=== PATIENT | male | born 1955 | race Asian ===

== ENCOUNTER 2020-04-10 08:48 | Day surgery (SDC) | payer BC ==
[~2020-04-10] VITALS: Ht 170.2 cm; Wt 77.1 kg
[2020-04-10] VITALS (10 sets, daily range): BP systolic 96–109; BP diastolic 60–71
--- NOTE | 2020-04-10 07:06 | Pre-Procedure Note/Attestation ---
Pre-Procedure Note/Attestation Complete Prior to Procedure Planned Procedure: left Procedure Narrative: left carpal tunnel release and middle trigger finger release Indications for Procedure Pre-Operative Diagnosis: left carpal tunnel syndrome and middle trigger finger Attestation I attest that I discussed the nature of the procedure; its benefits; risks and complications; and alternatives (and the risks and benefits of such alternatives ), prior to the procedure, with the patient (or the patient's legal customer retention representative). I attest that, if there was a reasonable possibility of needing a blood transfusion, the patient (or the patient's legal customer retention representative) was given the [facility] standardized written summary, pursuant to the [place] Blood Safety Act ([place] Health and Safety Code # 1645, as amended). I attest that I re-evaluated the patient just prior to the surgery and that there has been no change in the patient's H&P, except as documented below: NONE Amilcar Mcdowell MD Apr 10, 2020 07:06
[~2020-04-10 08:48] MED LIST: ANDROGEL75 G1 TD; ANDROGEL75 G2 TD; CIPRO500 MG PO; FLOMAX0.4 MG ORAL; LIPITOR20 MG ORAL; LOSARTAN POTASS25 MG ORAL; MOTRIN100 MG PO; NORVASC5 MG ORAL; OMEPRAZOLE40 M1 ORAL; PROTONIX40 MG ORAL; ceFAZolin sod 1gm in NS 55ml IVPB ONE; celeBREX 200mg Cap **SURGERY PATIENTS ONLY ORAL ONE; oxyCONTIN 10mg tab ORAL ONE
[2020-04-10] MEDS ORDERED: LR 1000ml 1,000 ML IVLG SCH (09:21)
[2020-04-10] MEDS ORDERED: fentaNYL 100 mcg/2 mL IV PRN (09:23)
[2020-04-10] MEDS ORDERED: Midazolam 2mg/2ml Inj IVP PRN (09:25)
--- NOTE | 2020-04-10 09:26 | Anethesia Preoperative Eval ---
Anesthesia Pre-op PMH/ROS General Date of Evaluation: Apr 10, 2020 Time of Evaluation: 10:04 Anesthesiologist: Richie ASA Score: ASA 3 Mallampati Score Class I : Soft palate, uvula, fauces, pillars visible Class II: Soft palate, uvula, fauces visible Class III: Soft palate, base of uvula visible Class IV: Only hard plate visible Mallampati Classification: Class II Surgeon: July Diagnosis: L Carpal Tunnel Surgical Procedure: L Carpal Tunnel Release Anesthesia History: none Family History: no anesthesia problems Allergies: Coded Allergies: No Known Allergies (Verified , 12/04/11) Medications: see eMAR Patient NPO?: Yes Past Medical History Cardiovascular: Reports: HTN, other - HL Gastrointestinal/Genitourinary: Reports: GERD Hematology/Immune: Reports: other - Bladder CA PSxH Narrative: Cystectomy Anesthesia Pre-op Phys. Exam Physician Exam Last Vital Signs Date Time Temp Pulse Resp B/P (MAP) Pulse Ox O2 Delivery O2 Flow Rate FiO2 04/10/20 09:18 Room Air 04/10/20 09:16 97.0 62 18 108/71 96 Constitutional: NAD Neurologic: CN 2-12 intact Cardiovascular: RRR Respiratory: CTA Gastrointestinal: S/NT/ND Airway Exam Mallampati Score: Class II MO: full ROM: limited Teeth: missing, intact Anesthesia Pre-op A/P Risk Assessment & Plan Assessment: ASA 3 Plan: GA, SED Status Change Before Surgery: No Pre-Antibiotics Dru Gram Ancef IV Given Within 1 Hr of Incision: Yes Time Given: 10:21 Keagan Quiroz MD Apr 10, 2020 09:26
--- NOTE | 2020-04-10 09:27 | Immediate Post-Op Evaluation ---
Immediate Post-Op Evalulation Immediate Post-Op Evalulation Procedure: L Carpal Tunnel Release Date of Evaluation: Apr 10, 2020 Time of Evaluation: 11:22 IV Fluids: 700 LR Blood Products: 0 Estimated Blood Loss: 7 Urinary Output: 0 Blood Pressure Systolic: 100 Blood Pressure Diastolic: 63 Pulse Rate: 58 Respiratory Rate: 16 O2 Sat by Pulse Oximetry: 100 Temperature (Fahrenheit): 97.1 Pain Score (1-10): 2 Nausea: No Vomiting: No Complications 0 Patient Status: awake, reacts, patent, none Hydration Status: adequate Dru Gram Ancef IV Given Within 1 Hr of Incision: Yes Time Given: 10:21 Keagan Quiroz MD Apr 10, 2020 09:26
--- NOTE | 2020-04-10 09:27 | 48 Hour Post Anesthesia Eval ---
Post Anesthesia Evaluation Procedure: L Carpal Tunnel Release Date of Evaluation: Apr 10, 2020 Time of Evaluation: 13:23 Blood Pressure Systolic: 121 0: 58 Pulse Rate: 71 Respiratory Rate: 18 Temperature (Fahrenheit): 97.4 O2 Sat by Pulse Oximetry: 99 Airway: patent Nausea: No Vomiting: No Pain Intensity: 1 Hydration Status: adequate Cardiopulmonary Status: Stable Mental Status/LOC: patient returned to baseline Follow-up Care/Observations: 0 Post-Anesthesia Complications: 0 Follow-up care needed: ready to discharge Keagan Quiroz MD Apr 10, 2020 09:27
[2020-04-10] MEDS ORDERED: Atropine Sulfate 0.4mg/ml inj IVP PRN (09:30)
[2020-04-10] MEDS ORDERED: DiphenhydrAMINE 50mg/ml Inj IVP PRN (09:30)
[2020-04-10] MEDS ORDERED: Meperidine 25mg/0.5ml Inj (FOR RIGORS ONLY) IV PRN (09:30)
[2020-04-10] MEDS ORDERED: HYDROcodone/Acetamin 7.5/325 tab ORAL PRN (09:30)
[2020-04-10] MEDS ORDERED: Ketorolac 30mg Inj IV PRN ×2 (09:30)
[2020-04-10] MEDS ORDERED: HYDROcodone/Acetamin 5/325 tab ORAL PRN ×2 (09:30→10:15)
[2020-04-10] MEDS ORDERED: Hydromorphone 0.5mg/0.5ml inj IVP PRN (09:30)
[2020-04-10] MEDS ORDERED: oxyCODONE HCL/Acetaminophen 5/325mg ORAL PRN (09:30)
[2020-04-10] MEDS ORDERED: Metoclopramide 10mg/2ml Inj IVP PRN (09:30)
[2020-04-10] MEDS ORDERED: LORazepam Inj 2mg/ml 1ml IV PRN (09:30)
[2020-04-10] MEDS ORDERED: Labetalol 5mg/ml 20ml vial IV PRN (09:30)
[2020-04-10] MEDS ORDERED: oxyCONTIN 10mg tab ORAL ONE (09:41)
[2020-04-10] MEDS ORDERED: celeBREX 200mg Cap **SURGERY PATIENTS ONLY ORAL ONE (09:42)
[2020-04-10] MEDS ORDERED: Bupivacaine 0.5% Inj 30 ml vial INJ ONE (09:59)
[2020-04-10] MEDS ORDERED: Lidocaine 1% Plain 30 ml INJ ONE (09:59)
[2020-04-10] MEDS ORDERED: Bupivacaine w/Epi 0.5% 30ml Vial INJ ONE (09:59)
[2020-04-10] MEDS ORDERED: LR 1000ml ONE (10:00)
[2020-04-10] MEDS ORDERED: NS Irrig 1000ml ONE (10:00)
[2020-04-10] MEDS ORDERED: Sterile Water Irrig 1000ml IRRIG ONE (10:00)
[2020-04-10] MEDS ORDERED: Lidocaine 1% MPF 10mg/ml 5ml ONE (10:04)
[2020-04-10] MEDS ORDERED: Sodium Chloride 10ml vial INJ ONE (10:04)
[2020-04-10] MEDS ORDERED: D5 1/2NS 1,000 ML IV SCH (10:15)
[2020-04-10] MEDS ORDERED: Tylenol #3 tab (300mg/30mg) ORAL PRN (10:15)
[2020-04-10] MEDS ORDERED: HYDROmorphone 1mg/ml Carpuject SUBQ PRN (10:15)
[2020-04-10] MEDS ORDERED: fentaNYL 100 mcg/2 mL IV ONE (10:39)
[2020-04-10] MEDS ORDERED: Naloxone 0.4mg/ml Inj ONE (10:52)
--- NOTE | 2020-04-10 10:59 | Brief Operative Note ---
Immediate Post Operative Note Operative Note Chief Complaint: left hand pain Pre-op Diagnosis: left carpal tunnel syndrome and trigger finger Procedure: left carpal tunnel release and middle trigger finger release Post-op Diagnosis: same as pre-op Findings: consistent w/pre-op dx studies Surgeon: md virginie Civil Engineer Helper: scottie wright Anesthesiologist: md josee Anesthesia: general Specimen: none Complications: none Condition: stable Fluids: ns Estimated Blood Loss: minimal Drains: none Implant(s) used?: No Yen Wright Apr 10, 2020 10:59
--- NOTE | 2020-04-10 19:30 | Operative Note - Dictated ---
DATE OF OPERATION: 04/10/2020 PREOPERATIVE DIAGNOSES: 1. Left hand carpal tunnel syndrome. 2. Left hand middle finger trigger finger. POSTOPERATIVE DIAGNOSES: 1. Left hand carpal tunnel syndrome. 2. Left hand middle finger trigger finger. PROCEDURE: 1. Left hand carpal tunnel release. 2. Left hand middle finger trigger finger release. SURGEON: Amilcar Jennings MD JET HANDLER: Yen Medina PA-C ANESTHESIOLOGIST: Keagan Quiroz MD ANESTHESIA: General LMA anesthesia. EBL: Less than 20 mL. TOURNIQUET TIME: 20 minutes. COMPLICATIONS: None. BRIEF HISTORY: Patient is a pleasant 65-year-old gentleman who has had ongoing numbness and tingling in radial 2 digits. He is also having triggering of the middle finger. He failed all nonoperative treatment. After full discussion of risks and benefits of surgery and complications associated with it including infection, bleeding, neurovascular complication, possibility of continued pain, possible need for further surgery, continued triggering of the middle finger, numbness, tingling, stiffness, and other complications that may arise, he opted for surgical treatment as described above. OPERATIVE PROCEDURE: Patient was brought to the operating room table and was placed supine. All pressure points well padded. General LMA anesthesia was induced. The area of carpal tunnel was injected with 0.5% Marcaine with epinephrine, a total of 6 mL. The area of trigger finger was injected with 0.5% Marcaine plain with no epinephrine, a total of 6 mL. At this point, the left hand was exsanguinated and tourniquet was inflated to 275 mmHg. Standard horizontal incision was made over the middle finger in line with the distal palmar crease. The incision was taken through subcutaneous tissue. The digital arteries and nerves were retracted ulnarly and radially and A1 wesley was identified. The A1 wesley was then excised using a knife and scissors proximally and distally. The tendon was completely released. At this point, the tendon was brought out of the wound and was examined. There was no tearing of that tendon. Wounds were thoroughly irrigated using copious amount of fluid and the skin was reapproximated using 3-0 horizontal mattress interrupted sutures. At this point, care was given to carpal tunnel area. The carpal tunnel incision was made in line with the radial border of the ring finger distal to the wrist crease by 2.5 cm. Incision was taken to subcutaneous tissue and palmaris fascia was opened. Transverse carpal ligament was identified and this was released all the way distally to the fat surrounding the palmar arch. Care was given to protect the palmar arch. Proximally, the release was taken to the distal wrist crease and subcutaneous dissection was then performed under and over the transverse carpal ligament proximally and the proximal release was performed all the way to the proximal wrist crease. This provided excellent release of the carpal tunnel area. At this point, wounds were thoroughly irrigated using copious amount of fluid. Tourniquet was deflated. There was minimal bleeding that was coagulated. The skin was reapproximated using 3-0 horizontal mattress nylon sutures. Sterile dressing was applied and all lap counts and instrument counts were correct. Patient tolerated the procedure well without any complication and was taken to the recovery room in a stable condition. Amilcar Mcdowell M.D. DR: DELANEY JOB#: [id number] CC:
== END 2020-04-10 14:40 | disposition home or self-care (01) ==
LOC: SUR 08:48
DX: G56.02 Carpal tunnel syndrome, left upper limb (principal); M65.332 Trigger finger, left middle finger; I10 Essential (primary) hypertension; K21.9 Gastro-esophageal reflux disease without esophagitis; Z85.51 Personal history of malignant neoplasm of bladder; E78.5 Hyperlipidemia, unspecified
CPT/HCPCS: 26055; 64721; 94003; J0690; J1100; J2250; J2310; J2405; J2704; J3010; J3490; J7120; 94150